=== PATIENT | male | born 1965 | race Caucasian/White ===

== ENCOUNTER 2021-07-15 03:33 | Observation (INO) | payer BC ==
[~2021-07-15] VITALS: Ht 175.3 cm; Wt 117.0 kg
[2021-07-15 06:05] LABS: HEMOGLOBIN 13.1 gm/dl (14.0-17.5); RED BLOOD COUNT 4.37 M/UL (4.20-5.50)
[2021-07-15 06:31] LABS: BUN/CREATININE RATIO 14 (0-10)
[2021-07-15] MEDS ORDERED: METFORMIN HCL500 MG PO (10:46)
[2021-07-15] MEDS ORDERED: AMOX TR-K CLV1 EAC4 PO (10:47)
[2021-07-15] MEDS ORDERED: LISINOPRIL10 MG PO (10:47)
[2021-07-15] MEDS ORDERED: IBU800 MG PO (10:48)
[2021-07-16 04:16] LABS: HEMOGLOBIN 14.1 gm/dl (14.0-17.5); RED BLOOD COUNT 4.59 M/UL (4.20-5.50); WHITE BLOOD COUNT 14.5 K/UL (4.5-11.0)
[2021-07-16 04:40] LABS: BUN/CREATININE RATIO 13 (0-10)
[2021-07-17 05:05] LABS: BUN/CREATININE RATIO 18 (0-10)
[2021-07-17] MEDS ORDERED: BACTRIM DS TAB1 EACH PO (10:04)
== END 2021-07-17 11:15 | disposition home or self-care (01) ==
LOC: ER1 03:33 → MED SURG 4 10:43 → CDU 10:43 → MED SURG 4 12:12
PROVIDERS: Physician Assistant; Physician Assistant Medical; Surgery; ADMIT Internal Medicine
PROC: 0W960ZZ Drainage of Neck, Open Approach (ICD-10-PCS; principal; 2021-07-16 10:45)
DX: L02.11 Cutaneous abscess of neck (principal); E11.628 Type 2 diabetes mellitus with other skin complications; L03.221 Cellulitis of neck; F17.210 Nicotine dependence, cigarettes, uncomplicated; I10 Essential (primary) hypertension; E66.01 Morbid (severe) obesity due to excess calories; Z68.38 Body mass index [BMI] 38.0-38.9, adult; Z79.84 Long term (current) use of oral hypoglycemic drugs; Z79.899 Other long term (current) drug therapy
CPT/HCPCS: 36415; 70491; 80048; 80053; 80202; 82962; 83605; 83735; 85025; 85027; 87040; 87070; 87205; 96374; 96375; 99284; G0378; J1100; J1650; J1956; J2001; J2250; J2405; J2704; J3010; J3370; J7030; J7070; J7120; Q9967; U0002

== ENCOUNTER → 2021-09-22 | Outpatient (CLI) | payer BC ==
[~2021-09-22] MED LIST: AMOX TR-K CLV1 EAC4 PO; BACTRIM DS TAB1 EACH PO; IBU800 MG PO; LISINOPRIL10 MG PO; METFORMIN HCL500 MG PO
== END ==
LOC: KOH-I 10:14
DX: M54.50 Low back pain, unspecified (principal); M47.816 Spondylosis without myelopathy or radiculopathy, lumbar region
CPT/HCPCS: 72100